=== PATIENT | female | born 1945 | race Caucasian/White ===

== ENCOUNTER 2019-05-15 09:57 | Observation (INO) ==
[2019-05-15 11:16] LABS: Basophils % 0.4 %; Eosinophils # 0.1 K/mcL (0.0-0.6); Eosinophils % 1.5 %; Immature Granulocytes % 0.7 % (0-4); Lymphocytes # 0.5 K/mcL (0.6-4.6); Lymphocytes % 8.7 %; Mean Corpuscular HGB Conc 32.1 g/dL (31.6-35.5); Mean Corpuscular Hemoglobin 29.3 pg (28.0-33.3); Mean Corpuscular Volume 91.2 fL (83.0-100.0); Mean Platelet Volume 9.7 fL (9.4-12.4); Monocytes # 0.2 K/mcL (0.0-1.3); Monocytes % 2.9 %; Neutrophils # 4.7 K/mcL (1.6-8.9); Platelet Count 415 K/mcL (140-400); Red Blood Count 3.07 M/mcL (3.82-4.97); Red Cell Distribution Width 14.5 % (11.5-14.5); Segmented Neutrophils % 85.8 %; White Blood Count 5.5 K/mcL (4.3-11.1)
[2019-05-15 11:18] LABS: INR 1.2; Prothrombin Time 13.3 Seconds (9.4-12.1)
[2019-05-15 11:39] LABS: Alanine Aminotransferase 7 Units/L (7-52); Albumin 3.5 g/dL (3.5-5.7); Alkaline Phosphatase 84 Units/L (34-104); Aspartate Amino Transferase 10 Units/L (13-39); BUN/Creatinine Ratio 11 (6-26); Bilirubin,Total 0.6 mg/dL (0.3-1.0); Blood Urea Nitrogen 11 mg/dL (8-23); Calcium 8.9 mg/dL (8.6-10.3); Carbon Dioxide 22 mEq/L (23-29); Chloride 105 mEq/L (98-107); Globulin 3.4 g/dL (2.4-3.5); Glucose 124 mg/dL (70-105); Osmolality,Calculated 289 (280-300); Potassium 3.7 mEq/L (3.5-5.1); Sodium 139 mEq/L (136-145); Total Protein 6.9 g/dL (6.4-8.9); Troponin I 0.06 ng/mL (< 0.04); eGFR For African Americans > 60 (> 60); eGFR For Non-African Americans 53 (> 60)
[2019-05-15] MEDS ORDERED: Isovue-370 500 ML BOTTLE IVP ONE ×2 (11:48→12:15)
[2019-05-15] MEDS ORDERED: Aspirin 325 MG TABLET PO ONE (12:16)
[2019-05-15] MEDS ORDERED: Naloxone 0.4 MG/ML INJ IVP PRN (14:20)
[2019-05-15] MEDS ORDERED: Nitroglycerin 0.4 MG TAB.SUBL SL PRN (14:20)
[2019-05-15 15:34] LABS: INR 1.2; Prothrombin Time 13.5 Seconds (9.4-12.1)
[2019-05-15 15:50] LABS: Magnesium 2.1 mg/dL (1.6-2.6); Phosphorous 3.2 mg/dL (2.7-4.5)
[2019-05-15] MEDS: *HR* Heparin 5,000 UNIT/ML VIAL SQ SCH (17:35)
[2019-05-15] MEDS: Furosemide 80 MG in 0.9 % Sodium Chloride 50 ML IV SCH ×2 (17:44→22:13)
[2019-05-15] MEDS: Acetaminophen 325 MG TABLET PO PRN (18:12)
[2019-05-15] MEDS ORDERED: Cyanocobalamin (B-12) 1,000 MCG/ML VIAL IM ONE (18:40)
[2019-05-15 23:49] LABS: Amphetamine Screen,Urine Negative ng/mL (Cutoff=1000); Barbiturate Screen,Urine Negative ng/mL (Cutoff=200); Benzodiazepines Screen,Urine Negative ng/mL (Cutoff=200); Cannabinoid Screen,Urine Negative ng/mL (Cutoff = 50); Cocaine Screen,Urine Negative ng/mL (Cutoff= 300); Creatinine,Urine 18 mg/dL; Opiate Screen,Urine Negative ng/mL (Cutoff=300); Phencyclidine Screen,Urine Negative ng/mL (Cutoff=25)
[2019-05-16 00:16] LABS: Bilirubin,Urine Negative (Negative); Blood,Urine Negative (Negative); Clarity,Urine Clear (Clear); Color,Urine Yellow (Yellow); Glucose,Urine (UA) Normal (Normal); Ketones,Urine Negative (Negative); Leukocyte Esterase,Urine Negative (Negative); Nitrite,Urine Negative (Negative); Protein,Urine Negative (Neg-Trace); Specific Gravity,Urine 1.014 (1.010-1.025); Urobilinogen,Urine Normal (Normal)
[2019-05-16] MEDS ORDERED: Melatonin 3 MG TABLET PO PRN (00:20)
[2019-05-16 04:26] LABS: Basophils % 0.2 %; Hematocrit 27.2 % (35.3-44.9); Hemoglobin 8.4 g/dL (11.5-15.4); Immature Granulocytes % 0.9 % (0-4); Immature Reticulocyte % 15.1 % (11.0-38.0); Lymphocytes # 0.6 K/mcL (0.6-4.6); Lymphocytes % 9.9 %; Mean Corpuscular HGB Conc 30.9 g/dL (31.6-35.5); Mean Corpuscular Hemoglobin 28.8 pg (28.0-33.3); Mean Corpuscular Volume 93.2 fL (83.0-100.0); Monocytes # 0.2 K/mcL (0.0-1.3); Monocytes % 3.9 %; Neutrophils # 4.8 K/mcL (1.6-8.9); Platelet Count 381 K/mcL (140-400); Red Blood Count 2.92 M/mcL (3.82-4.97); Red Cell Distribution Width 14.3 % (11.5-14.5); Retculocyte # 0.05 M/mcL (0.05-0.10); Reticulocyte % 1.7 % (1.6-2.8); Segmented Neutrophils % 85.1 %; White Blood Count 5.7 K/mcL (4.3-11.1)
[2019-05-16 04:40] LABS: Albumin 3.3 g/dL (3.5-5.7); Albumin/Globulin Ratio 1.1 (1.1-2.2); Bilirubin,Total 0.3 mg/dL (0.3-1.0); Calcium 8.6 mg/dL (8.6-10.3); Globulin 3.1 g/dL (2.4-3.5); Potassium 3.7 mEq/L (3.5-5.1); Total Protein 6.4 g/dL (6.4-8.9)
[2019-05-16 04:41] LABS: % Iron Saturation 15 % (15-50); Iron 31 mcg/dL (50-170); Transferrin 144 mg/dL (203-362)
[2019-05-16 05:00] LABS: Ferritin 247 ng/mL (10-120)
[2019-05-16] MEDS: *HR* Heparin 5,000 UNIT/ML VIAL SQ SCH (06:16)
[2019-05-16] MEDS ORDERED: Ipratropium/Albuterol Neb 3 ML IH PRN (06:51)
[2019-05-16] MEDS: Acetaminophen 325 MG TABLET PO PRN (08:12)
[2019-05-16] MEDS ORDERED: Furosemide 20 MG/2 ML VIAL IVP ONE (09:29)
[2019-05-16] MEDS: Cyanocobalamin (B-12) 1,000 MCG TABLET PO SCH (10:34)
[2019-05-16] MEDS: Sodium Ferric Gluconat/Sucrose 125 MG in 0.9 % Sodium Chloride 100 ML IVPB SCH (11:05)
[2019-05-16] MEDS ORDERED: Ondansetron 4 MG/2 ML VIAL IVP PRN (11:14)
[2019-05-16] MEDS ORDERED: Acetaminophen 325 MG TABLET PO PRN (11:19)
[2019-05-16] MEDS: Pantoprazole 40 MG VIAL IVP SCH (12:26)
[2019-05-16] MEDS ORDERED: traZODone 50 MG TABLET PO SCH (21:00)
[2019-05-16] MEDS ORDERED: Melatonin 3 MG TABLET PO SCH (21:00)
[2019-05-17 04:19] LABS: Basophils % 0.2 %; Eosinophils # 0.1 K/mcL (0.0-0.6); Eosinophils % 0.6 %; Hematocrit 27.1 % (35.3-44.9); Hemoglobin 8.3 g/dL (11.5-15.4); Immature Granulocytes % 0.7 % (0-4); Lymphocytes # 1.4 K/mcL (0.6-4.6); Lymphocytes % 17.5 %; Mean Corpuscular HGB Conc 30.6 g/dL (31.6-35.5); Mean Corpuscular Hemoglobin 29.3 pg (28.0-33.3); Mean Corpuscular Volume 95.8 fL (83.0-100.0); Mean Platelet Volume 9.4 fL (9.4-12.4); Monocytes # 0.5 K/mcL (0.0-1.3); Monocytes % 6.7 %; Platelet Count 360 K/mcL (140-400); Red Blood Count 2.83 M/mcL (3.82-4.97); Red Cell Distribution Width 14.5 % (11.5-14.5); Segmented Neutrophils % 74.3 %; White Blood Count 8.1 K/mcL (4.3-11.1)
[2019-05-17 04:38] LABS: BUN/Creatinine Ratio 19 (6-26); Blood Urea Nitrogen 22 mg/dL (8-23); Calcium 8.3 mg/dL (8.6-10.3); Carbon Dioxide 27 mEq/L (23-29); Chloride 105 mEq/L (98-107); Glucose 102 mg/dL (70-105); Osmolality,Calculated 292 (280-300); Sodium 139 mEq/L (136-145); eGFR For African Americans 56 (> 60); eGFR For Non-African Americans 46 (> 60)
[2019-05-17 08:47] LABS: INR 1.1; Prothrombin Time 12.4 Seconds (9.4-12.1)
[2019-05-17] MEDS ORDERED: Aspirin 325 MG TABLET PO SCH (09:00)
[2019-05-17 09:33] LABS: Lactate Dehydrogenase 167 Units/L (140-271); Total Protein 6.3 g/dL (6.4-8.9)
[2019-05-17] MEDS: Cyanocobalamin (B-12) 1,000 MCG TABLET PO SCH (09:50)
[2019-05-17] MEDS: Pantoprazole 40 MG VIAL IVP SCH (09:50)
[2019-05-17] MEDS: Sodium Ferric Gluconat/Sucrose 125 MG in 0.9 % Sodium Chloride 100 ML IVPB SCH (09:50)
[2019-05-17 10:34] VITALS: BP 101/52
== END 2019-05-17 13:13 | disposition home or self-care (01) ==
LOC: EMEROOARM 09:57 → 2ANU 09:57 → SUATTDRO 16:21 → 2ANU 17:00
PROVIDERS: ADMIT Internal Medicine; ATTEND Internal Medicine

== ENCOUNTER 2019-05-28 13:51 | Inpatient (IN) ==
[2019-05-28] MEDS ORDERED: Ipratropium/Albuterol Neb 3 ML IH ONE (14:17)
[2019-05-28] MEDS ORDERED: predniSONE 20 MG TABLET PO ONE (14:17)
[2019-05-28 14:43] LABS: Basophils % 0.3 %; Eosinophils # 0.2 K/mcL (0.0-0.6); Eosinophils % 2.3 %; Hematocrit 30.4 % (35.3-44.9); Hemoglobin 9.5 g/dL (11.5-15.4); Immature Granulocytes % 0.5 % (0-4); Lymphocytes # 0.7 K/mcL (0.6-4.6); Mean Corpuscular HGB Conc 31.3 g/dL (31.6-35.5); Mean Corpuscular Hemoglobin 28.6 pg (28.0-33.3); Mean Corpuscular Volume 91.6 fL (83.0-100.0); Mean Platelet Volume 8.8 fL (9.4-12.4); Monocytes # 0.4 K/mcL (0.0-1.3); Monocytes % 5.5 %; Neutrophils # 6.1 K/mcL (1.6-8.9); Platelet Count 435 K/mcL (140-400); Red Blood Count 3.32 M/mcL (3.82-4.97); Red Cell Distribution Width 15.7 % (11.5-14.5); Segmented Neutrophils % 82.4 %; White Blood Count 7.4 K/mcL (4.3-11.1)
[2019-05-28 15:04] LABS: BUN/Creatinine Ratio 10 (6-26); Blood Urea Nitrogen 10 mg/dL (8-23); Calcium 8.5 mg/dL (8.6-10.3); Carbon Dioxide 22 mEq/L (23-29); Chloride 104 mEq/L (98-107); Glucose 171 mg/dL (70-105); Osmolality,Calculated 287 (280-300); Potassium 3.4 mEq/L (3.5-5.1); Sodium 137 mEq/L (136-145); eGFR For African Americans > 60 (> 60); eGFR For Non-African Americans 53 (> 60)
[2019-05-28 15:16] LABS: Troponin I 0.06 ng/mL (< 0.04)
[2019-05-28] MEDS ORDERED: Ondansetron 4 MG/2 ML VIAL IVP PRN (16:23)
[2019-05-28] MEDS ORDERED: Ondansetron ODT 4 MG TAB.RAPDIS SL PRN (16:23)
[2019-05-28] MEDS ORDERED: Isovue-370 500 ML BOTTLE IVP ONE (16:45)
[2019-05-28] MEDS ORDERED: Ringers Solution, Lactated 1,000 ML IVC SCH (19:00)
[2019-05-28 19:14] LABS: Adenovirus Not Detected (Not Detect); Bordetella Pertussis Not Detected (Not Detect); Chlamydophila pneumoniae Not Detected (Not Detect); Coronavirus 229E Not Detected (Not Detect); Coronavirus HKU1 Not Detected (Not Detect); Coronavirus NL63 Not Detected (Not Detect); Coronavirus OC43 Not Detected (Not Detect); Human Metapneumovirus Not Detected (Not Detect); Human Rhinovirus/Enterovirus Not Detected (Not Detect); Influenza A Subtype 2009 H1 Not Detected (Not Detect); Influenza B Not Detected (Not Detect); Mycoplasma pneumoniae Not Detected (Not Detect); Parainfluenza Virus 1 Not Detected (Not Detect); Parainfluenza Virus 2 Not Detected (Not Detect); Parainfluenza Virus 3 Not Detected (Not Detect); Parainfluenza Virus 4 Not Detected (Not Detect); Respiratory Syncytial Virus DETECTED (Not Detect)
[2019-05-28] MEDS: Ipratropium/Albuterol Neb 3 ML IH SCH ×2 (19:33→23:03)
[2019-05-28] MEDS: Azithromycin 500 MG in 0.9 % Sodium Chloride 250 ML IVPB SCH (19:35)
[2019-05-29] MEDS: Melatonin 3 MG TABLET PO SCH ×2 (01:25→20:56)
[2019-05-29] MEDS: Ipratropium/Albuterol Neb 3 ML IH SCH ×6 (03:25→23:58)
[2019-05-29 05:09] LABS: Basophils % 0.2 %; Hemoglobin 8.3 g/dL (11.5-15.4); Immature Granulocytes % 0.8 % (0-4); Lymphocytes # 0.4 K/mcL (0.6-4.6); Lymphocytes % 8.1 %; Mean Corpuscular HGB Conc 30.7 g/dL (31.6-35.5); Mean Corpuscular Hemoglobin 28.3 pg (28.0-33.3); Mean Corpuscular Volume 92.2 fL (83.0-100.0); Mean Platelet Volume 9.3 fL (9.4-12.4); Monocytes # 0.1 K/mcL (0.0-1.3); Monocytes % 1.8 %; Neutrophils # 4.5 K/mcL (1.6-8.9); Platelet Count 397 K/mcL (140-400); Red Blood Count 2.93 M/mcL (3.82-4.97); Red Cell Distribution Width 15.8 % (11.5-14.5); Segmented Neutrophils % 89.1 %; White Blood Count 5.1 K/mcL (4.3-11.1)
[2019-05-29 05:19] LABS: Calcium 8.8 mg/dL (8.6-10.3)
[2019-05-29] MEDS: predniSONE 20 MG TABLET PO SCH (09:24)
[2019-05-29] MEDS ORDERED: methylPREDNISolone 125 MG/2 ML VIAL IVP ONE (13:10)
[2019-05-29] MEDS ORDERED: Albuterol Neb 7.5 MG, Sodium Chloride for inhalation 12 ML IH ONE (13:10)
[2019-05-29] MEDS ORDERED: Albuterol 2.5 MG/3 ML NEBULIZER ONE (17:09)
[2019-05-29] MEDS: Azithromycin 500 MG in 0.9 % Sodium Chloride 250 ML IVPB SCH (18:15)
[2019-05-29] MEDS: *HR* Heparin 5,000 UNIT/ML VIAL SQ SCH (18:17)
[2019-05-30] MEDS: Ipratropium/Albuterol Neb 3 ML IH SCH ×6 (04:10→23:37)
[2019-05-30] MEDS: *HR* Heparin 5,000 UNIT/ML VIAL SQ SCH ×2 (05:27→18:12)
[2019-05-30] MEDS: predniSONE 20 MG TABLET PO SCH (09:01)
[2019-05-30] MEDS ORDERED: *HR* LORazepam 0.5 MG TABLET PO PRN (14:05)
[2019-05-30] MEDS: Acetaminophen 325 MG TABLET PO PRN (15:59)
[2019-05-30] MEDS: Azithromycin 500 MG in 0.9 % Sodium Chloride 250 ML IVPB SCH (18:08)
[2019-05-30] MEDS: Melatonin 3 MG TABLET PO SCH (20:20)
[2019-05-30] MEDS: traZODone 50 MG TABLET PO SCH (20:20)
[2019-05-31] MEDS: Ipratropium/Albuterol Neb 3 ML IH SCH ×6 (03:42→23:35)
[2019-05-31] MEDS: *HR* Heparin 5,000 UNIT/ML VIAL SQ SCH ×2 (05:13→18:28)
[2019-05-31] MEDS: Furosemide 20 MG/2 ML VIAL IVP SCH (10:15)
[2019-05-31] MEDS: Cyanocobalamin (B-12) 1,000 MCG TABLET PO SCH (10:15)
[2019-05-31] MEDS: predniSONE 20 MG TABLET PO SCH (10:15)
[2019-05-31] MEDS: Aspirin 325 MG TABLET PO SCH (10:15)
[2019-05-31] MEDS: Azithromycin 500 MG in 0.9 % Sodium Chloride 250 ML IVPB SCH (18:28)
[2019-05-31] MEDS: Melatonin 3 MG TABLET PO SCH (20:21)
[2019-05-31] MEDS: traZODone 50 MG TABLET PO SCH (20:22)
[2019-06-01 03:23] LABS: Basophils % 0.2 %; Eosinophils % 0.1 %; Hematocrit 28.4 % (35.3-44.9); Hemoglobin 8.7 g/dL (11.5-15.4); Immature Granulocytes % 1.8 % (0-4); Lymphocytes # 1.3 K/mcL (0.6-4.6); Lymphocytes % 15.3 %; Mean Corpuscular HGB Conc 30.6 g/dL (31.6-35.5); Mean Corpuscular Hemoglobin 28.5 pg (28.0-33.3); Mean Corpuscular Volume 93.1 fL (83.0-100.0); Mean Platelet Volume 9.8 fL (9.4-12.4); Monocytes # 0.5 K/mcL (0.0-1.3); Monocytes % 5.6 %; Neutrophils # 6.4 K/mcL (1.6-8.9); Platelet Count 417 K/mcL (140-400); Red Blood Count 3.05 M/mcL (3.82-4.97); Red Cell Distribution Width 16.1 % (11.5-14.5); White Blood Count 8.3 K/mcL (4.3-11.1)
[2019-06-01] MEDS: Ipratropium/Albuterol Neb 3 ML IH SCH ×6 (03:28→23:53)
[2019-06-01 03:39] LABS: BUN/Creatinine Ratio 23 (6-26); Blood Urea Nitrogen 24 mg/dL (8-23); Calcium 8.6 mg/dL (8.6-10.3); Carbon Dioxide 28 mEq/L (23-29); Chloride 102 mEq/L (98-107); Glucose 122 mg/dL (70-105); Osmolality,Calculated 291 (280-300); Potassium 3.9 mEq/L (3.5-5.1); Sodium 138 mEq/L (136-145); eGFR For African Americans > 60 (> 60); eGFR For Non-African Americans 53 (> 60)
[2019-06-01] MEDS: *HR* Heparin 5,000 UNIT/ML VIAL SQ SCH ×2 (05:31→17:02)
[2019-06-01] MEDS: Furosemide 20 MG/2 ML VIAL IVP SCH (08:00)
[2019-06-01] MEDS: Cyanocobalamin (B-12) 1,000 MCG TABLET PO SCH (08:00)
[2019-06-01] MEDS: Acetaminophen 325 MG TABLET PO PRN ×2 (08:01→15:07)
[2019-06-01] MEDS: Aspirin 325 MG TABLET PO SCH (08:01)
[2019-06-01] MEDS: predniSONE 20 MG TABLET PO SCH (08:01)
[2019-06-01] MEDS ORDERED: Benzonatate 100 MG CAPSULE PO PRN (10:33)
[2019-06-01] MEDS: Azithromycin 500 MG in 0.9 % Sodium Chloride 250 ML IVPB SCH (17:02)
[2019-06-01] MEDS: Melatonin 3 MG TABLET PO SCH (21:50)
[2019-06-01] MEDS: traZODone 50 MG TABLET PO SCH (21:50)
[2019-06-02] MEDS: Ipratropium/Albuterol Neb 3 ML IH SCH ×2 (03:22→07:37)
[2019-06-02] MEDS: *HR* Heparin 5,000 UNIT/ML VIAL SQ SCH (05:18)
[2019-06-02 07:52] VITALS: BP 133/73
[2019-06-02] MEDS ORDERED: Furosemide 20 MG TABLET PO SCH (09:00)
[2019-06-02] MEDS: Cyanocobalamin (B-12) 1,000 MCG TABLET PO SCH (09:41)
[2019-06-02] MEDS: Aspirin 325 MG TABLET PO SCH (09:41)
[2019-06-02] MEDS: predniSONE 20 MG TABLET PO SCH (09:41)
== END 2019-06-02 10:05 | disposition home or self-care (01) | DRG 291 ==
LOC: 3BNU 13:51 → EMEROOARM 13:51 → 3BNU 17:44 → SUATTDRO 05-30 17:19
PROVIDERS: ADMIT Family Medicine; ATTEND Internal Medicine

== ENCOUNTER 2020-09-14 06:10 | Inpatient (IN) ==
[2020-09-14] MEDS ORDERED: CeFAZolin Syr 2,000MG/20 ML 2,000 MG/20 ML SYRINGE IVPB ONE (06:28)
[2020-09-14] MEDS ORDERED: Ringers Solution, Lactated 1,000 ML IVC SCH (06:30)
[2020-09-14] MEDS ORDERED: Vancomycin 1,000 MG VIAL ONE (07:12)
[2020-09-14] MEDS ORDERED: Dexamethasone 4 MG/ML VIAL ONE (07:20)
[2020-09-14] MEDS ORDERED: *HR* FentaNYL (PF) 100 MCG/2 ML VIAL ONE (07:20)
[2020-09-14] MEDS ORDERED: Ondansetron 4 MG/2 ML VIAL ONE (07:20)
[2020-09-14] MEDS ORDERED: *HR* Midazolam HCl 2 MG/2 ML VIAL ONE (07:20)
[2020-09-14] MEDS ORDERED: Sugammadex Sodium 200 MG/2 ML VIAL IV ONE (07:20)
[2020-09-14] MEDS ORDERED: *HR* Rocuronium Bromide 50 MG/5 ML VIAL ONE (07:20)
[2020-09-14] MEDS ORDERED: Lidocaine -MPF 2% 2 ML VIAL ONE (07:20)
[2020-09-14] MEDS ORDERED: *HR* Succinylcholine 200 MG/10 ML VIAL IVP ONE (07:20)
[2020-09-14] MEDS ORDERED: *HR* Propofol 200 MG/20 ML VIAL IVP ONE (07:21)
[2020-09-14] MEDS ORDERED: Ropivacaine/PF 0.5% 30 ML VIAL ONE (07:28)
[2020-09-14] MEDS ORDERED: ROPIVACAINE/PF/NS 0.25% 1 EACH SYRINGE INTRAART ONE (07:29)
[2020-09-14] MEDS ORDERED: Povidone-Iodine 45 ML, Sodium Chloride IRRigation 1,000 ML IR ONE (07:45)
[2020-09-14] MEDS ORDERED: TOTAL JOINT MIXTURE (100ML) INTRAART ONE (07:45)
[2020-09-14] MEDS ORDERED: Tranexamic Acid 1,000 MG/10 ML VIAL ONE (08:13)
[2020-09-14] MEDS ORDERED: Ethanol\\Acetic Acid\\Na Ace\\Ben 1,000 ML IRRIG.SOLN IR ONE (08:32)
[2020-09-14] MEDS ORDERED: *HR* HYDROmorphone PF 0.5 MG/0.5 ML SYRINGE IVP PRN (10:47)
[2020-09-14] MEDS ORDERED: *HR* HYDROmorphone (PF) 1 MG/ML SYRINGE IM ONE (10:51)
[2020-09-14] MEDS ORDERED: *HR* HYDROmorphone (PF) 1 MG/ML SYRINGE IVP ONE (11:00)
[2020-09-14] MEDS ORDERED: *HR* HYDROmorphone (PF) 1 MG/ML SYRINGE IVP PRN (11:50)
[2020-09-14] MEDS ORDERED: *HR* Promethazine 25 MG/ML VIAL IM PRN (11:50)
[2020-09-14] MEDS ORDERED: Naloxone 0.4 MG/ML INJ IVP PRN (11:50)
[2020-09-14] MEDS ORDERED: Sennosides 8.6 MG TABLET PO PRN (11:50)
[2020-09-14] MEDS ORDERED: Ketorolac 15 MG/ML VIAL IVP PRN (11:50)
[2020-09-14] MEDS ORDERED: Ondansetron 4 MG/2 ML VIAL IVP PRN (11:50)
[2020-09-14] MEDS ORDERED: MOM Conc 10 ML UD.LIQ PO PRN (11:50)
[2020-09-14] MEDS: *HR* OxyCODONE Immed Rel 5 MG TABLET PO PRN (13:26)
[2020-09-14] MEDS: CeFAZolin 2 GM/120 ML BAG IVPB SCH ×2 (16:56→23:59)
[2020-09-14] MEDS: Ascorbic Acid 500 MG TABLET PO SCH (16:56)
[2020-09-14] MEDS ORDERED: traZODone 50 MG TABLET PO SCH (21:00)
[2020-09-14] MEDS: Ringers Solution, Lactated 1,000 ML IVC SCH (21:07)
[2020-09-15 00:57] LABS: Basophils % 0.2 %; Hematocrit 34.5 % (35.3-44.9); Immature Granulocytes % 0.5 % (0-4); Lymphocytes # 0.9 K/mcL (0.6-4.6); Lymphocytes % 6.5 %; Mean Corpuscular HGB Conc 31.9 g/dL (31.6-35.5); Mean Corpuscular Hemoglobin 30.1 pg (28.0-33.3); Mean Corpuscular Volume 94.5 fL (83.0-100.0); Mean Platelet Volume 9.9 fL (9.4-12.4); Monocytes # 0.4 K/mcL (0.0-1.3); Monocytes % 2.7 %; Neutrophils # 11.9 K/mcL (1.6-8.9); Platelet Count 259 K/mcL (140-400); Red Blood Count 3.65 M/mcL (3.82-4.97); Segmented Neutrophils % 90.1 %; White Blood Count 13.2 K/mcL (4.3-11.1)
[2020-09-15] MEDS: *HR* OxyCODONE Immed Rel 5 MG TABLET PO PRN ×4 (01:09→17:01)
[2020-09-15 01:19] LABS: Calcium 8.1 mg/dL (8.6-10.3)
[2020-09-15] MEDS ORDERED: Multivit/Ca/Min/Fe/FA 1 TAB TABLET PO SCH (09:00)
[2020-09-15] MEDS ORDERED: Lisinopril-HCTZ 20-12.5mg TABLET PO SCH (09:00)
[2020-09-15] MEDS: Ringers Solution, Lactated 1,000 ML IVC SCH (09:04)
[2020-09-15] MEDS: Ascorbic Acid 500 MG TABLET PO SCH ×2 (09:08→17:01)
[2020-09-15 15:05] VITALS: BP 137/72
[2020-09-15 18:27] LABS: Adenovirus Not Detected (Not Detect); Bordetella Pertussis Not Detected (Not Detect); Chlamydophila pneumoniae Not Detected (Not Detect); Coronavirus 229E Not Detected (Not Detect); Coronavirus HKU1 Not Detected (Not Detect); Coronavirus NL63 Not Detected (Not Detect); Coronavirus OC43 Not Detected (Not Detect); Human Metapneumovirus Not Detected (Not Detect); Human Rhinovirus/Enterovirus Not Detected (Not Detect); Influenza A Subtype 2009 H1 Not Detected (Not Detect); Influenza B Not Detected (Not Detect); Mycoplasma pneumoniae Not Detected (Not Detect); Parainfluenza Virus 1 Not Detected (Not Detect); Parainfluenza Virus 2 Not Detected (Not Detect); Parainfluenza Virus 3 Not Detected (Not Detect); Parainfluenza Virus 4 Not Detected (Not Detect); Respiratory Syncytial Virus Not Detected (Not Detect); SARS-CoV-2 Not Detected (Not Detect)
== END 2020-09-15 19:40 | disposition other institution (70) | DRG 470 ==
LOC: SAMDAY 06:10 → 3NENU 11:49
PROVIDERS: ADMIT Orthopaedic Surgery; ATTEND Orthopaedic Surgery